=== PATIENT | male | born 2005 | race African-American/Black ===

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

== ENCOUNTER 2023-02-28 13:06 | Emergency (ER) | payer BC, OTHER, SELFPAY ==
[2023-02-28 13:41] VITALS: BP 151/92; PULSE 78; RESP 18; TEMP 36.9; O2SAT 100
--- NOTE | 2023-02-28 14:50 | ED.URI ---
HPI - URI/Sore Throat General Chief Complaint: Upper Respiratory Infection Stated Complaint: Sore Throat Time Seen by Provider: 02/28/23 14:44 Source: patient and RN notes reviewed Mode of arrival: ambulatory Limitations: no limitations History of Present Illness HPI Narrative: Patient presents today with 5 day history of cough, sore throat, headache. Denies shortness of breath or fever. Currently rates his pain 7/10 and has been taking Tylenol and NyQuil with mild relief. Denies known sick contacts. Related Data Home Medications Medication Instructions Recorded Confirmed No Home Medications 02/28/23 02/28/23 Allergies Allergy/AdvReac Type Severity Reaction Status Date / Time No Known Allergies Allergy Verified 02/28/23 13:11 Review of Systems Review of Systems: CONSTITUTIONAL: Denies body aches, fever, chills, or sweats. EYES: Denies visual changes, redness, or discharge. ENT: Denies rhinorrhea, congestion, or otalgia.+ sore throat CARDIOVASCULAR: Denies chest pain, palpitations, or edema. RESPIRATORY: Denies dyspnea.+ cough GASTROINTESTINAL: Denies abdominal pain, nausea, vomiting, or diarrhea. GENITOURINARY: Denies dysuria or hematuria. SKIN: Denies rash, itching, or wounds. MUSCULOSKELETAL: Denies back pain, joint pain, or myalgia. NEUROLOGIC: Denies numbness, tingling, or weakness.+ headache PSYCH: Denies depression or anxiety. [facility] Family History Family History Grandparent Cancer Hypertension Mother Blood disorder Social History Social History Social History: Caffeine-none Smoking status: Never smoker Alcohol intake: never Substance use: never Substance use type: does not use Lack of Transportation: No Lack of Food: Never True Current Housing: I Have Housing Concerned About Future Housing: No Difficulty Paying Gas/Electric Bills: No Difficulty Paying for Meds: No Currently Unemployed: No Education: High School Diploma/GED Difficulty w/ Childcare or Family Care: No Living arrangements: with family Comments At time of signature, I have reviewed and agree with nursing past medical, surgical, social and family history unless otherwise noted. Please see nursing chart for further information. There is no relevant family history pertinent to the presenting complaint Exam Narrative: GENERAL: Well-appearing, well-nourished, and in no acute distress. HEAD: Normocephalic, atraumatic. EYES: EOMI. No redness or drainage. Conjunctivae normal. ENT: Mucous membranes pink and moist. Nares congested. No rhinorrhea. TMs normal bilaterally. Throat erythematous and mildly edematous without exudate. Uvula midline. NECK: Normal AROM. Supple. No lymphadenopathy. CHEST: No respiratory distress. Clear to auscultation. HEART: Regular rate and rhythm. No murmur appreciated. EXTREMITIES: Normal range of motion. No edema. SKIN: Warm, dry, no rash. Capillary refill normal. Normal skin turgor. NEURO: No focal deficits. Alert and oriented x3. Gait steady. PSYCH: Normal affect. No signs of depression or anxiety. Course Course Level of Care: Express Care Visit Vital Signs Vital signs: Vital Signs Temperature 98.4 F 02/28/23 13:41 Pulse Rate 78 02/28/23 13:41 Respiratory Rate 18 02/28/23 13:41 Blood Pressure 151/92 H 02/28/23 13:41 Pulse Oximetry 100 02/28/23 13:41 Oxygen Delivery Room Air 02/28/23 13:41 Temperature 98.4 F 02/28/23 13:41 Pulse Rate 78 02/28/23 13:41 Respiratory Rate 18 02/28/23 13:41 Blood Pressure 151/92 H 02/28/23 13:41 Pulse Oximetry 100 02/28/23 13:41 Oxygen Delivery Room Air 02/28/23 13:41 Reviewed MDM - URI/Sore Throat MDM Narrative Medical decision making narrative: Testing negative. Strep culture pending. Symptoms likely viral in etiology. [id number] medic
== END 2023-02-28 14:58 | disposition home or self-care (01) ==
PROVIDERS: Emergency Provider Nurse Practitioner; PCP Internal Medicine
DX: J06.9 Acute upper respiratory infection, unspecified (principal); Z20.822 Contact with and (suspected) exposure to COVID-19
CPT/HCPCS: 87081; 87426; 87804; 87880; 99213; C9803; G0463

== ENCOUNTER 2024-09-25 10:08 | Emergency (ER) | payer BC, SELFPAY ==
[2024-09-25 10:19] VITALS: BP 138/73; PULSE 67; RESP 20; TEMP 36.8; O2SAT 100
[2024-09-25 10:35] LABS: EDUAAPPEAR Cloudy; EDUABILI Negative (Negative); EDUABLOOD Negative (Negative); EDUACOLOR1 Yellow; EDUAGLUCOSE Negative (Negative); EDUAKETONE Negative (Negative); EDUALEUKO 3+ (Negative); EDUANITRATE Negative (Negative); EDUAPH 7.0; EDUAPROTEIN Negative (Negative); EDUASPGRAVITY 1.020; EDUAUROBILI 0.2
--- NOTE | 2024-09-25 10:48 | ED.MALEGU ---
HPI - Male Genitourinary General Chief complaint: Urogenital-Male Stated complaint: STD Time Seen by Provider: 09/25/24 10:48 Source: patient Mode of arrival: ambulatory Limitations: no limitations History of Present Illness HPI Narrative: 18 yo M presents with c/o discharge from penis for approx. 5 days with dysuria. New sexual partner recently. did not use protection. All systems reviewed and negative except as noted above. Related Data Home Medications ?Medication ?Instructions ?Recorded ?Confirmed ?Last Taken ?Type No Home Medications 09/25/24 09/25/24 Unknown History Allergies Allergy/AdvReac Type Severity Reaction Status Date / Time No Known Allergies Allergy Verified 09/25/24 10:20 Review of Systems Review of Systems: CONSTITUTIONAL: Denies fever, chills, or sweats. EYES: Denies visual changes, redness, or discharge. ENT: Denies rhinorrhea, congestion, sore throat, or otalgia. CARDIOVASCULAR: Denies chest pain, palpitations, or edema. RESPIRATORY: Denies cough or dyspnea. GASTROINTESTINAL: Denies abdominal pain, nausea, vomiting, or diarrhea. GENITOURINARY: reports dysuria, purulent discharge SKIN: Denies rash or itching. MUSCULOSKELETAL: Denies back pain, joint pain, or myalgia. NEUROLOGIC: Denies headache, numbness, or weakness. PSYCHIATRIC: Denies anxiety or depression. All other systems reviewed are negative, except as documented in HPI. [facility] Family History Family History Grandparent Cancer Hypertension Mother Blood disorder Social History Social History Social History: Caffeine-none Smoking status: Never smoker Alcohol intake: never Substance use: never Substance use type: does not use Lack of Transportation: No Lack of Food: Never True Current Housing: I Have Housing Concerned About Future Housing: No Difficulty Paying Gas/Electric Bills: No Difficulty Paying for Meds: No Currently Unemployed: No Education: High School Diploma/GED Difficulty w/ Childcare or Family Care: No Living arrangements: with family Comments At time of signature, agree with nursing past medical, surgical, social and family history. There is no relevant family history pertinent to the presenting complaint. Exam Narrative: GENERAL: This is a well-nourished, well-developed patient, in no apparent distress. HEAD: normocephalic, atraumatic. EYES: PERRL. Sclera clear/white. Vision is grossly intact. EARS: External ears normal NOSE: External nose normal NECK: Neck supple, non-tender without lymphadenopathy, masses or thyromegaly. CARDIOVASCULAR: Regular rate and rhythm without murmurs, gallops, or rubs. RESPIRATORY: Clear to auscultation. Breath sounds equal bilaterally. No wheezes, rales, or rhonchi. SKIN: warm, Dry, intact with no suspicious lesions or rash, good texture and turgor. NEURO: awake, alert, and oriented to person, place and time. There were no obvious focal neurologic abnormalities. EXTREMITIES: No joint tenderness, effusion, or edema noted. Course Course Level of Care: Express Care Visit Vital Signs Vital signs: Vital Signs Temperature 36.8 C 09/25/24 10:19 Pulse Rate 67 09/25/24 10:19 Respiratory Rate 20 09/25/24 10:19 Blood Pressure 138/73 09/25/24 10:19 Pulse Oximetry 100 09/25/24 10:19 Oxygen Delivery Room Air 09/25/24 10:19 Temperature 36.8 C 09/25/24 10:19 Pulse Rate 67 09/25/24 10:19 Respiratory Rate 20 09/25/24 10:19 Blood Pressure 138/73 09/25/24 10:19 Pulse Oximetry 100 09/25/24 10:19 Oxygen Delivery Room Air 09/25/24 10:19 reviewed MDM - Male Genitourinary MDM Narrative Medical decision making narrative: Patient is well-appearing, nontoxic. Will treat for gonorrhea and chlamydia Due to penile discharge , recent unprotected sex. Urine culture ordered. Will wait for urine culture results prior to treating with antibiotic. Lab Data Labs: Lab Results 09/25/24 Range/Units 10:24 POC Urine Color Yellow POC Urine Clarity Cloudy POC Urine pH 7.0 POC Ur Specif [place] 1.020 POC Urine Protein Negative (Negative) POC Ur Glucose (UA) Negative (Negative) POC Urine Ketones Negative (Negative) POC Urine Blood Negative (Negative) POC Urine Nitrite Negative (Negative) POC Urine Bilirubin Negative (Negative) POC Urine Urobilinogen 0.2 POC U Leukocyte Esteras 3+ (Negative) Discharge Plan Discharge Clinical Impression: Concern about sexually transmitted infection in male without diagnosis Patient Disposition: Home Condition: Stable Instructions: Antibiotic Form, Sexually Transmitted Diseases (ED) Additional Instructions: you were tested for gonorrhea, chlamydia and Trichomonas today. Antibiotics given for gonorrhea and chlamydia. Test results will take 24-72 hours. If you need any additional antibiotics prescribed we will call you. If you have a positive test result you will need to inform her partner and they will also need treatment. Patient Language: Bengali Prescriptions: No Action No Home Medications Follow-up/Referrals: Sinan Cutler DO [Primary Care Provider] - Time of Disposition: 10:56
[2024-09-25] MEDS: cefTRIAXone 500 MG, LIDOCAINE 1% LOCAL INJ 1 ML IM (11:03)
[2024-09-25 18:49] LABS: Trichomonas Vag PCR NOT DETECTED (NOT DETECTE)
== END 2024-09-25 11:34 | disposition home or self-care (01) ==
PROVIDERS: Emergency Provider Nurse Practitioner Family; PCP Internal Medicine
DX: A54.9 Gonococcal infection, unspecified (principal); A74.9 Chlamydial infection, unspecified
CPT/HCPCS: 81003; 87086; 87491; 87591; 87661; 96372; 99213; G0463; J0696; J2003